=== PATIENT | male | born 1945 | race Two or more races ===

== ENCOUNTER 2022-01-18 21:39 | Inpatient (IN) | payer OTHER ==
[~2022-01-18] VITALS: Ht 185.4 cm; Wt 57.0 kg
[2022-01-18] MEDS ORDERED: ALBUTEROL SULF 2.5 MG/0.5ML(0.5%) NEB SOLN NEB ONE (22:15)
[2022-01-18] MEDS ORDERED: IPRATROPIUM BROM 0.5 MG/2.5ML INH SOL NEB ONE (22:15)
[2022-01-18] MEDS ORDERED: methylPREDNISolone SOD SUCC 125 MG/2 ML VL IV ONE (22:15)
[2022-01-18 22:34] LABS: Basophils # (auto) 0 10 ^3/uL (0-0.2); Basophils % (auto) 0.5 % (0.0-2.0); Eosinophils # (auto) 0.1 10 ^3/uL (0-0.8); Eosinophils % (auto) 0.9 % (0.0-7.0); Hematocrit 41.7 % (41.0-53.0); Hemoglobin 13.4 g/dL (13.5-17.5); Lymphocytes # (auto) 1.4 10 ^3/uL (0.4-5.4); Mean Corpuscular Hemoglobin 29.5 pg (28.0-32.0); Mean Corpuscular Hgb Conc. 32.1 g/dL (32.0-36.0); Monocytes # (auto) 0.5 10 ^3/uL (0-1.3); Monocytes % (auto) 6.4 % (0.0-12.0); Neutrophils # (auto) 5.6 10 ^3/uL (1.6-8.6); Neutrophils % (auto) 73.2 % (37.0-80.0); Red Blood Cells 4.54 10^6/uL (4.5-5.90); Red Cell Distribution Width 14.3 % (11.8-14.3); White Blood Cell 7.6 10^3/uL (4.4-10.8)
[2022-01-18 22:54] LABS: Albumin 3.8 g/dL (3.4-5.0); BUN/Creatinine Ratio 35.5; Calcium 9.8 mg/dL (8.5-10.1); Potassium 4.2 mmol/L (3.5-5.1)
[2022-01-18 22:57] LABS: Bilirubin, Total 0.9 mg/dL (0.2-1.0); Total Protein 6.9 g/dL (6.4-8.2)
[2022-01-19 02:42] VITALS: BP 114/68
[2022-01-19] MEDS ORDERED: ONDANSETRON HCL 4 MG/2 ML VIAL IV PRN (02:45)
[2022-01-19] MEDS ORDERED: IPRATROPIUM BROM 0.5 MG/2.5ML INH SOL NEB PRN (02:45)
[2022-01-19] MEDS ORDERED: HYDROcodone-ACET 5/325MG TAB PO PRN (02:45)
[2022-01-19] MEDS ORDERED: ALBUTEROL SULF 2.5 MG/0.5ML(0.5%) NEB SOLN NEB PRN (02:45)
[2022-01-19] MEDS ORDERED: TEMAZEPAM 15 MG CAP PO PRN (02:45)
[2022-01-19] MEDS ORDERED: MORPHINE SULFATE INJ 2 MG/ml SYRG IV PRN (02:45)
[2022-01-19] MEDS ORDERED: NITROGLYCERIN 0.4 MG SL TAB SL PRN (02:45)
[2022-01-19] MEDS ORDERED: ACETAMINOPHEN 325 MG TAB PO PRN (02:45)
[2022-01-19] MEDS ORDERED: IOHEXOL 350 MG/ML 100ML IJ ONE (02:47)
[2022-01-19] MEDS ORDERED: methylPREDNISolone SOD SUCC 125 MG/2 ML VL IV SCH (10:00)
[2022-01-19] MEDS: METOPROLOL TARTRATE 25 MG TAB PO SCH ×2 (10:00→22:30)
[2022-01-19] MEDS: LOSARTAN POTASSIUM 25 MG TAB PO SCH (10:17)
[2022-01-19] MEDS: PANTOPRAZOLE 40 MG TAB PO SCH (10:17)
[2022-01-19] MEDS: ENOXAPARIN SOD 40 MG/0.4 ML SYRINGE SC SCH (10:17)
[2022-01-19 13:24] VITALS: BP 119/68
[2022-01-19 14:49] VITALS: BP 119/68
[2022-01-19] MEDS ORDERED: DOXY100C2 PO ×2 (15:23→15:45)
[2022-01-19] MEDS ORDERED: ALBU108A5 PO (15:23)
[2022-01-19] MEDS ORDERED: LOS25T PO (15:23)
[2022-01-19] MEDS ORDERED: MET25T PO (15:23)
[2022-01-19] MEDS ORDERED: PRED20TA2 PO (15:45)
[2022-01-19] MEDS ORDERED: ASPI-325 PO (15:45)
[2022-01-19 16:34] VITALS: BP 106/61
[2022-01-19 20:00] VITALS: BP 125/87
[2022-01-19 21:30] VITALS: BP 114/63
[2022-01-19] MEDS: methylPREDNISolone SOD SUCC 40 MG/ML VL IV SCH (22:26)
[2022-01-20 05:00] VITALS: BP 106/60
[2022-01-20 06:48] LABS: Basophils # (auto) 0 10 ^3/uL (0-0.2); Eosinophils # (auto) 0 10 ^3/uL (0-0.8); Hematocrit 36.5 % (41.0-53.0); Hemoglobin 12.1 g/dL (13.5-17.5); Lymphocytes # (auto) 0.8 10 ^3/uL (0.4-5.4); Lymphocytes % (auto) 9.3 % (10.0-50.0); Mean Corpuscular Hemoglobin 30.8 pg (28.0-32.0); Mean Corpuscular Volume 93.3 fL (80.0-100.0); Monocytes # (auto) 0.3 10 ^3/uL (0-1.3); Monocytes % (auto) 3.2 % (0.0-12.0); Neutrophils # (auto) 7.4 10 ^3/uL (1.6-8.6); Neutrophils % (auto) 87.5 % (37.0-80.0); Red Blood Cells 3.91 10^6/uL (4.5-5.90); Red Cell Distribution Width 13.8 % (11.8-14.3); White Blood Cell 8.4 10^3/uL (4.4-10.8)
[2022-01-20 07:07] LABS: Potassium 4.6 mmol/L (3.5-5.1)
[2022-01-20 07:11] LABS: Albumin 3.1 g/dL (3.4-5.0); BUN/Creatinine Ratio 55.2; Calcium 8.9 mg/dL (8.5-10.1)
[2022-01-20 07:14] LABS: Bilirubin, Total 0.8 mg/dL (0.2-1.0); Total Protein 5.8 g/dL (6.4-8.2)
[2022-01-20 09:00] VITALS: BP 97/51
[2022-01-20] MEDS: ENOXAPARIN SOD 40 MG/0.4 ML SYRINGE SC SCH (09:37)
[2022-01-20] MEDS: methylPREDNISolone SOD SUCC 40 MG/ML VL IV SCH (09:37)
[2022-01-20] MEDS: PANTOPRAZOLE 40 MG TAB PO SCH (09:37)
[2022-01-20] MEDS: METOPROLOL TARTRATE 25 MG TAB PO SCH (09:38)
[2022-01-20] MEDS: LOSARTAN POTASSIUM 25 MG TAB PO SCH (09:38)
[2022-01-20] MEDS ORDERED: ASPirin 81 mg TAB PO SCH (10:00)
[2022-01-20 10:07] VITALS: BP 97/51
== END 2022-01-20 10:35 | disposition hospice, home (50) | DRG 189 ==
LOC: ER 21:39 → EDBD 21:39 → TELE 01-19 02:33 → TELE-CENTR 01-19 13:17
PROVIDERS: ADMIT Nurse Practitioner; ATTEND Internal Medicine
DX: J96.21 Acute and chronic respiratory failure with hypoxia (principal); J44.1 Chronic obstructive pulmonary disease with (acute) exacerbation; I51.3 Intracardiac thrombosis, not elsewhere classified; F17.200 Nicotine dependence, unspecified, uncomplicated; I10 Essential (primary) hypertension; Z20.822 Contact with and (suspected) exposure to COVID-19
CPT/HCPCS: 36415; 71045; 71275; 80053; 83880; 84484; 85025; 85379; 93005; 93970; 94640; 96374; 99291; G0378

== ENCOUNTER 2022-05-12 04:46 | Emergency (ER) | payer OTHER ==
[~2022-05-12] VITALS: Ht 182.9 cm; Wt 65.0 kg
[~2022-05-12 04:46] MED LIST: ALBU108A5 PO; ASPI-325 PO; DOXY100C2 PO; LOS25T PO; MET25T PO; PRED20TA2 PO
[2022-05-12] MEDS ORDERED: IPRATROPIUM BROM 0.5 MG/2.5ML INH SOL HHN ONE (05:45)
[2022-05-12] MEDS ORDERED: methylPREDNISolone SOD SUCC 125 MG/2 ML VL IV ONE (05:45)
[2022-05-12] MEDS ORDERED: ALBUTEROL SULF 2.5 MG/0.5ML(0.5%) NEB SOLN HHN ONE (05:45)
[2022-05-12 06:52] LABS: Basophils # (auto) 0.1 10 ^3/uL (0-0.2); Basophils % (auto) 0.6 % (0.0-2.0); Eosinophils # (auto) 0.1 10 ^3/uL (0-0.8); Eosinophils % (auto) 1.2 % (0.0-7.0); Hematocrit 37.6 % (41.0-53.0); Hemoglobin 12.1 g/dL (13.5-17.5); Lymphocytes # (auto) 0.7 10 ^3/uL (0.4-5.4); Lymphocytes % (auto) 8.2 % (10.0-50.0); Mean Corpuscular Hemoglobin 29.7 pg (28.0-32.0); Mean Corpuscular Volume 92.8 fL (80.0-100.0); Monocytes # (auto) 0.5 10 ^3/uL (0-1.3); Monocytes % (auto) 5.5 % (0.0-12.0); Neutrophils # (auto) 7.4 10 ^3/uL (1.6-8.6); Neutrophils % (auto) 84.5 % (37.0-80.0); Red Blood Cells 4.05 10^6/uL (4.5-5.90); Red Cell Distribution Width 15.1 % (11.8-14.3); White Blood Cell 8.8 10^3/uL (4.4-10.8)
[2022-05-12 07:12] LABS: Albumin 2.7 g/dL (3.4-5.0); BUN/Creatinine Ratio 29.3; Calcium 7.7 mg/dL (8.5-10.1); Magnesium 1.7 mg/dL (1.6-2.6); Potassium 3.6 mmol/L (3.5-5.1)
[2022-05-12 07:15] LABS: Bilirubin, Total 0.4 mg/dL (0.2-1.0); Total Protein 5.7 g/dL (6.4-8.2)
[2022-05-12] MEDS ORDERED: AZITHROMYCIN 500MG/ 250ML 250 ML IV ONE (09:45)
[2022-05-12] MEDS ORDERED: cefTRIAXone 1GM/50ML D5W 50 ML IV ONE (09:45)
[2022-05-12] MEDS ORDERED: IOHEXOL 350 MG/ML 100ML IJ ONE (13:32)
[2022-05-13 11:00] VITALS: BP 156/74
== END 2022-05-13 11:16 | disposition home or self-care (01) ==
LOC: EDBD 04:46 → ER 04:46
DX: J44.1 Chronic obstructive pulmonary disease with (acute) exacerbation (principal); I10 Essential (primary) hypertension; R06.03 Acute respiratory distress; Z20.822 Contact with and (suspected) exposure to COVID-19
CPT/HCPCS: 36415; 71045; 71275; 80053; 83735; 83880; 84484; 85025; 85379; 87426; 93005; 94640; 96365; 96367; 99291; J0456; J0696; J7644; Q9967